=== PATIENT | female | born 1995 | race Caucasian/White ===

== ENCOUNTER 2016-07-24 19:52 | Emergency (ER) | END 2016-07-24 20:41 | disposition left against medical advice (07) | LOC: UCCORT 19:52 | DX: R42 Dizziness and giddiness (principal); Z53.21 Procedure and treatment not carried out due to patient leaving prior to being seen by health care provider ==

== ENCOUNTER 2016-07-25 08:20 | Emergency (ER) | payer OTHER ==
[2016-07-25 08:35] VITALS: BP 143/71
--- NOTE | 2016-07-25 08:46 | UC ---
Throat Pain/Nasal Rodrigo HPI - HPI Summary HPI Summary: SINUS PAIN AND PRESSURE X 7 DAYS + NASAL CONGESTION, COUGH, DIZZINESS NO FEVER, + CHILLS - History of Current Complaint Chief Complaint: UCDizziness Stated Complaint: DIZZINESS Time Seen by Provider: 07/25/16 08:36 Hx Obtained From: Patient Hx Last Menstrual Period: 07/17/16 ?: No Onset/Duration: Gradual Onset, Lasting Days - 7, Still Present Severity: Moderate Cough: Nonproductive Associated Signs & Symptoms: Positive: Sinus Discomfort, Nasal Discharge. Negative: Dysphagia, Wheezing, Hoarseness, Fever, Vomiting, Rash - Allergies/Home Medications Allergies/Adverse Reactions: Allergies Allergy/AdvReac Type Severity Reaction Status Date / Time Tree Nuts Allergy Swelling Verified 07/25/16 08:27 Of Face,Lips,& Throat PMH/Surg Hx/FS Hx/Imm Hx Previously Healthy: Yes - Surgical History Surgical History: Yes Surgery Procedure, Year, and Place: tonsils, adenoids; nabila placed and removed - left arm 2006 - Family History Known Family History: Negative: Diabetes - Social History Alcohol Use: Occasionally Substance Use Type: None Smoking Status (MU): Never Smoked Tobacco - Immunization History Most Recent Influenza Vaccination: NO Review of Systems Constitutional: Negative Skin: Negative Eyes: Negative ENT: Nasal Discharge Respiratory: Cough Cardiovascular: Negative Gastrointestinal: Negative Motor: Weakness Neurological: Weakness All Other Systems Reviewed And Are Negative: Yes Physical Exam Triage Information Reviewed: Yes Appearance: Well-Appearing, No Pain Distress, Well-Nourished Vital Signs: Initial Vital Signs Temp 97.4 F 07/25/16 08:28 Pulse 73 07/25/16 08:28 Resp 20 07/25/16 08:28 BP 143/71 07/25/16 08:28 Pulse Ox 100 07/25/16 08:28 Vital Signs Reviewed: Yes Eyes: Positive: Conjunctiva Clear ENT: Positive: Normal ENT inspection, Hearing grossly normal, Pharyngeal erythema, Nasal congestion, Nasal drainage, TMs normal Neck: Positive: Supple, Nontender, No Lymphadenopathy Respiratory: Positive: Chest non-tender, Lungs clear, Normal breath sounds Cardiovascular: Positive: RRR, No Murmur, Pulses Normal, Brisk Capillary Refill Neurological: Positive: Alert Skin Exam: Normal UC Physical Exam Vital Signs On Initial Exam: Initial Vitals Temp Pulse Resp BP Pulse Ox 97.4 F 73 20 143/71 100 07/25/16 08:28 07/25/16 08:28 07/25/16 08:28 07/25/16 08:28 07/25/16 08:28 - Neurological Exam Neurological: Sensory/Motor Intact, Alert, Oriented to Person Place, Time, CN Intact II-III, Reflexes Intact, Normal Gait, Speech Normal Throat Pain/Nasal Course/Dx - Differential Dx/Diagnosis Provider Diagnoses: SINUSITIS. VERTIGO Discharge - Discharge Plan Condition: Stable Disposition: HOME Prescriptions: Amoxicillin/Clavulanate TAB* [Augmentin TAB 875*] 875 mg PO BID #20 tab Meclizine TAB* [Antivert 12.5 TAB*] 25 mg PO TID PRN #21 tab PRN Reason: Dizziness Patient Education Materials: Sinusitis (ED), Vertigo (ED) Referrals: Non Staff,Doctor [Primary Care Provider] - 5 Days
== END 2016-07-25 08:51 | disposition home or self-care (01) ==
LOC: UCCORT 08:20
DX: J32.9 Chronic sinusitis, unspecified (principal); R42 Dizziness and giddiness
CPT/HCPCS: 99212; G0463